=== PATIENT | female | born 1950 | race Caucasian/White ===

== ENCOUNTER → 2021-06-10 10:59 | Outpatient (CLI) | payer MEDICARE, OTHER, SELFPAY ==
[2021-06-10 14:10] LABS: COVID19 -Nasal RAPID Negative (Negative)
== END ==
PROVIDERS: Visit Provider Physician Assistant
DX: Z01.812 Encounter for preprocedural laboratory examination (principal); Z20.822 Contact with and (suspected) exposure to COVID-19
CPT/HCPCS: 87635; C9803

== ENCOUNTER → 2021-06-12 09:59 | Outpatient (CLI) | payer MEDICARE, OTHER, SELFPAY ==
--- NOTE | 2021-06-13 18:52 | DI.NM.S_ITS ---
DATE OF SERVICE: 06/12/2021 PROCEDURE: Pharmacological perfusion study. INDICATION: Chest pain with underlying hypertension, hyperlipidemia, status post AVR, diabetes mellitus. RADIOPHARMACEUTICAL: 26.9 millicurie technetium-99m Myoview IV was injected at stress and 26.0 millicurie technetium-99m Myoview IV was injected at rest. CARDIAC STRESS: The patient underwent IV Lexiscan perfusion study under the supervision of an attending staff. She received IV Lexiscan as per protocol. She remained hemodynamically stable. Had some slight shortness of breath and transient jaw pain. Baseline EKG revealed sinus rhythm with evidence of LVH and about [address] depression and T-wave inversion in inferolateral leads. During stress, those downsloping ST-depressions got more pronounced. The patient developed intermittent PVCs, as well as PACs without any obvious ventricular tachycardia or atrial fibrillation. RAW DATA: Significant breast shadow seen. The patient's weight is 250 pounds. GATED STUDY: Resting LV ejection fraction 78 percent and stress LV ejection fraction 85 percent without any obvious wall motion abnormalities. Resting end- diastolic volume 103 mL. TID ratio 0.83, which is within normal limits. Lung/heart ratio 0.47, which is abnormal. MYOCARDIAL PERFUSION: Please note, we do not have any stress prone images. Stress supine and resting supine images were compared to each other. perfusion scan revealed predominantly fixed moderate size, moderate to severely decreased perfusion of mid to distal anterior wall extending into the anteroapex and distal anterolateral wall without any reversible ischemia. CONCLUSION: The patient has predominantly fixed moderate size, moderate to severely decreased perfusion of anterior wall extending into the apex and distal anterolateral wall. Large breast shadow seen during raw images. Left ventricular function is preserved. Anterior wall, as well as apex, is moving well. Normal wall motion goes against the diagnosis of transmural myocardial infarction. Likely, this defect is due to breast tissue attenuation artifact. However, in absence of prone images, cannot rule out nontransmural myocardial infarction of mid to distal anterior wall, anteroapex, as well as distal anterolateral wall. No transient ischemic dilatation. However, lung/heart ratio is abnormal. Consider 2D echo to make sure there is no diastolic dysfunction or left-sided valvular pathology. Clinical correlation is recommended. Luz Priest - MARIUM/kyaw/mckenna doc#: [id number]/job#: [id number] dd: 06/13/2021 17:18:00 dt: 06/13/2021 18:31:00 DICTATING MD/COPIES TO: Cash Benitez MD COPIES MNE: FAUSTO;
== END ==
PROVIDERS: PCP Internal Medicine; Referring Provider Internal Medicine Cardiovascular Disease; Visit Provider Internal Medicine Cardiovascular Disease
DX: R07.9 Chest pain, unspecified (principal); I10 Essential (primary) hypertension; E78.5 Hyperlipidemia, unspecified; E11.9 Type 2 diabetes mellitus without complications; Z95.2 Presence of prosthetic heart valve
CPT/HCPCS: 78452; 93017; A9502; J2785